=== PATIENT | male | born 1965 | race Caucasian/White ===

== ENCOUNTER 2025-04-23 09:49 | Emergency (ER) | payer OTHER ==
[~2025-04-23] VITALS: Ht 182.8 cm; Wt 86.2 kg
[2025-04-23] MEDS ORDERED: SODIUM CHLORIDE 0.9% 1,000 ML IV ONE (10:05)
[2025-04-23 10:26] LABS: BASO % 0.4 % (0.0-1.0); EOS # 0.2 10*3/uL (0.0-0.4); EOS % 1.8 % (1.0-4.0); HEMATOCRIT 43.9 % (42.0-52.0); MEAN CELL VOLUME 92.6 fl (80.0-94.0); MEAN CORPUSCULAR HGB 30.4 pg (27.0-31.0); MEAN CORPUSCULAR HGB CONC 32.8 g/dl (33.0-37.0); MEAN PLATELET VOLUME 9.6 fl (9.6-12.3); MONO # 0.5 10*3/uL (0.1-1.0); MONO % 5.4 % (3.0-9.0); NEUT # 6.8 10*3/uL (2.3-7.9); NEUT % 81.8 % (47.0-73.0); PLATELET COUNT AUTOMATED 216 10*3/uL (130-400); RED BLOOD COUNT 4.74 10*6/uL (4.50-5.90); RED CELL DISTRI WIDTH 13.2 % (0-14.5); WHITE BLOOD COUNT 8.4 10*3/uL (4.8-10.8)
[2025-04-23 10:52] LABS: BUN 20 mg/dl (9-23); CHLORIDE 108 mmol/L (98-107); POTASSIUM 4.7 mmol/L (3.4-5.1)
== END 2025-04-23 11:50 | disposition home or self-care (01) ==
LOC: ED 09:49
PROVIDERS: Emergency Medicine
DX: R55 Syncope and collapse (principal)